=== PATIENT | female | born 1975 | race African-American/Black ===

== ENCOUNTER 2017-09-22 11:29 | Inpatient (IN) | payer MEDICAID, OTHER ==
[~2017-09-22] VITALS: Ht 167.6 cm; Wt 86.6 kg
[2017-09-22] MEDS ORDERED: KETOROLAC 30MG/ML VIAL IV ONE (12:30)
[2017-09-22] MEDS ORDERED: FAMOTIDINE 20MG/2ML VIAL IV ONE (12:30)
[2017-09-22 13:00] LABS: BASOPHILS % 0.9 % (0.0-2.0); EOSINOPHILS % 0.7 % (0.0-5.0); HEMATOCRIT. 38.6 % (36.0-48.0); LYMPHOCYTES % 31.5 % (20.0-50.0); MEAN CORPUSCULAR HEMOGLOBIN 28.4 pg (28.0-32.0); MEAN CORPUSCULAR VOLUME 84.3 fL (81.0-99.0); MEAN PLATELET VOLUME 9.7 fl (7.4-10.4); MONOCYTES % 7.6 % (2.0-8.0); NEUTROPHILS % 59.3 % (40.0-76.0); PLATELET 256 x1000/uL (130-400); RED BLOOD CELL COUNT 4.58 mill/uL (4.2-5.4); RED CELL DISTRIBUTION WIDTH 12.9 % (11.6-14.6)
[2017-09-22 13:08] LABS: PARTIAL THROMBOPLASTIN TIME 24.2 sec (23.4-31.0); PROTHROMBIN TIME 10.2 sec (9.4-11.6)
[2017-09-22] MEDS ORDERED: ASPIRIN 81MG TABLET PO STA (13:16)
[2017-09-22 13:19] LABS: CARBON DIOXIDE 25 mEq/L (21-32); CHLORIDE 107 mEq/L (98-107); TROPONIN I < 0.02 ng/mL (0.00-0.04)
[2017-09-22] MEDS: NITROGLYCERIN 0.4MG TABLET SL SL PRN ×3 (13:27→20:02)
[2017-09-22] MEDS ORDERED: CLONIDINE 0.2MG TABLET PO ONE (13:30)
[2017-09-22 14:23] LABS: CLARITY URINE CLEAR (CLEAR); COLOR URINE YELLOW (YELLOW); KETONES URINE NEGATIVE (NEGATIVE); LEUKOCYTE ESTERASE URINE NEGATIVE (NEGATIVE); NITRITE URINE NEGATIVE (NEGATIVE); OCCULT BLOOD URINE NEGATIVE (NEGATIVE); PH URINE >=9.0 (4.5-8.0); PROTEIN URINE NEGATIVE (NEGATIVE); SPECIFIC GRAVITY URINE 1.015 (1.005-1.030); UROBILINOGEN URINE 0.2 E.U./dL (0.2-1.0)
[2017-09-22] MEDS ORDERED: MAGNESIUM/ALUMINUM HYDROXIDE/SIMETHICONE 30ML UDC PO PRN (18:30)
[2017-09-22] MEDS ORDERED: LORAZEPAM 0.5MG TABLET PO PRN (18:30)
[2017-09-22] MEDS ORDERED: ONDANSETRON HCL 4MG/2ML VIAL IV PRN (18:30)
[2017-09-22] MEDS ORDERED: DIPHENHYDRAMINE 50MG/ML VIAL IV PRN (18:30)
[2017-09-22] MEDS ORDERED: ACETAMINOPHEN 325MG TABLET PO PRN (18:30)
[2017-09-22] MEDS: KETOROLAC 30MG/ML VIAL IV PRN (18:49)
[2017-09-22 20:37] LABS: *AMPHETAMINES SCREEN URINE NEGATIVE (NEGATIVE); *BARBITURATES SCREEN URINE NEGATIVE (NEGATIVE); *BENZODIAZEPINES SCREEN URINE NEGATIVE (NEGATIVE); *COCAINE SCREEN URINE NEGATIVE (NEGATIVE); METHADONE URINE SCREEN NEGATIVE (NEGATIVE); OPIATES URINE SCREEN NEGATIVE (NEGATIVE); PHENCYCLIDINE URINE SCREEN NEGATIVE (NEGATIVE)
[2017-09-22 20:39] LABS: CANNABINOID URINE SCREEN PRESUMTIVE POSITIVE (NEGATIVE)
[2017-09-22] MEDS ORDERED: ZOLPIDEM TARTRATE 5MG TABLET PO PRN (21:00)
[2017-09-22] MEDS ORDERED: MIRTAZAPINE 15MG TABLET PO SCH (23:30)
[2017-09-22] MEDS ORDERED: CLONIDINE 0.1MG TABLET PO PRN (23:30)
[2017-09-22 23:35] VITALS: BP 163/88
[2017-09-22] MEDS: SODIUM CHLORIDE 0.9% INJ 3ML FLUSH IVF SCH (23:47)
[2017-09-22 23:56] VITALS: BP 163/88
[2017-09-23] MEDS ORDERED: LEVOFLOXACIN 500MG PREMIX 100 ML IV SCH
[2017-09-23] MEDS ORDERED: IBUPROFEN 600MG TABLET PO PRN
[2017-09-23 04:00] VITALS: BP 138/85
[2017-09-23] MEDS: SODIUM CHLORIDE 0.9% INJ 3ML FLUSH IVF SCH (05:56)
[2017-09-23 08:00] VITALS: BP 139/75
[2017-09-23] MEDS: KETOROLAC 30MG/ML VIAL IV PRN (08:53)
[2017-09-23] MEDS ORDERED: VENLAFAXINE HCL 75MG TABLET PO SCH (09:00)
[2017-09-23 11:39] VITALS: BP 139/72
[2017-09-23 14:38] VITALS: BP 139/72
== END 2017-09-23 16:00 | disposition home or self-care (01) | DRG 203 ==
LOC: ER 12:35 → 6WST 13:46 → EDBEDREQ 13:49 → ENRESERV 20:56 → 6WST 23:20
PROVIDERS: ADMIT Internal Medicine; ATTEND Internal Medicine
DX: R07.89 Other chest pain (principal); I10 Essential (primary) hypertension; F12.90 Cannabis use, unspecified, uncomplicated; Z82.49 Family history of ischemic heart disease and other diseases of the circulatory system; Z88.0 Allergy status to penicillin; Z83.3 Family history of diabetes mellitus
CPT/HCPCS: 36415; 71045; 80053; 80305; 81003; 81025; 83690; 84484; 85025; 85610; 85730; 93005; 93970; 96374; 96375; 99285; J1885; J3490